=== PATIENT | female | born 1980 | race Caucasian/White ===

== ENCOUNTER 2021-09-25 02:07 | Emergency (ER) | payer OTHER, SELFPAY ==
[2021-09-25 02:08] VITALS: BP 148/87; PULSE 84; RESP 20; TEMP 36.6; O2SAT 98; BMI 31.9
[2021-09-25 02:26] LABS: Microscopic, Urine URINE MICROSCOPIC (MICROSCOPIC)
[2021-09-25 02:27] LABS: Appearance,Urine CLEAR (Clear); Bilirubin,Urine Negative (Negative); Blood, Urine 2+ (Negative); Color,Urine YELLOW (Yellow); Glucose,Urine (UA) Negative (Negative); Ketones,Urine 1+ (Negative); Leukocyte Esterase,Urine Negative (Negative); Nitrate,Urine Negative (Negative); PH,Urine 7.5 (5.0-8.5); Protein,Urine Negative (Negative); Urobilinogen,Urine 0.2 EU/dl (0.2)
--- NOTE | 2021-09-25 02:27 | CT_ITS ---
PROCEDURE INFORMATION: Exam: CT Abdomen And Pelvis With Contrast Exam date and time: 09/25/2021 3:02 AM Age: 40 years old Clinical indication: Abdominal pain; Localized; Lower; Additional info: Belly pain TECHNIQUE: Imaging protocol: Computed tomography of the abdomen and pelvis with contrast. Radiation optimization: All CT scans at this facility use at least one of these dose optimization techniques: automated exposure control; mA and/or kV adjustment per patient size (includes targeted exams where dose is matched to clinical indication); or iterative reconstruction. Contrast material: ISOVUE; Contrast volume: 75 ml; Contrast route: IV; COMPARISON: No relevant prior studies available. FINDINGS: Lungs: No mass/infiltrate at either lung base. No pleural effusion. Liver: The liver is normal in size. Ill-defined area of decreased attenuation noted within the lateral aspect of the medial segment of the left hepatic lobe, adjacent to the falciform ligament. This is felt to represent focal fatty metamorphosis. No intrahepatic biliary dilitation. Gallbladder and bile ducts: Normal. No calcified stones. No ductal dilation. Gallbladder wall thickness is normal. Pancreas: Normal. No ductal dilation. Spleen: No splenomegaly. Granulomatous calcifications are noted. Adrenal glands: Normal. No mass. Kidneys and ureters: Normal. No hydronephrosis. Stomach and bowel: Unremarkable. No obstruction. No mucosal thickening. Small bowel mesentery is normal. Appendix: The appendix is poorly visualized on this examination. There is no evidence of acute inflammatory process within the right lower quadrant. Intraperitoneal space: Trace ascites within the cul-de-sac. No evidence of free air. Vasculature: Mild arterial atheromatous calcifications are noted. No abdominal aortic aneurysm. There are calcified phleboliths within the pelvis. Lymph nodes: Unremarkable. No enlarged lymph nodes. Urinary bladder: Unremarkable as visualized. Reproductive: Unremarkable as visualized. Bones/joints: Unremarkable. No acute fracture. Soft tissues: Unremarkable. IMPRESSION: 1. Trace ascites within the cul-de-sac. No evidence of free air. 2. Ill-defined area of decreased attenuation within the lateral aspect of the medial segment of the left hepatic lobe adjacent to the falciform ligament. This is felt to represent focal fatty metamorphosis. 3. To further evaluate this patient, perhaps correlation with ultrasound of the pelvis with transvaginal and Doppler sonography would be helpful.
[2021-09-25 02:31] LABS: Urine Pregnancy, HCG Qual. Negative (Negative)
[2021-09-25 02:33] LABS: Basophils # 0.2 K/mm3 (0-0.2); Basophils % 0.7 % (0.1-2.0); Eosinophils # 0.3 K/mm3 (0.0-0.4); Eosinophils % 1.1 % (0.1-12.0); Hematocrit 48.5 % (37.0-47.0); Hemoglobin 15.7 g/dL (12.2-16.2); Lymphocytes # 1.4 K/mm3 (0.7-4.5); Mean Corpuscular HGB Conc 32.3 g/dL (31.8-35.4); Mean Corpuscular Hemoglobin 30.7 pg (27.0-31.2); Mean Corpuscular Volume 95.1 fl (81-99); Mean Platelet Volume 7.7 fl (7.4-10.4); Monocytes # 0.7 K/mm3 (0.1-1.0); Monocytes % 2.5 % (1.7-9.3); Neutrophils # 24.9 K/mm3 (1.8-7.8); Neutrophils % 90.6 % (37.0-80.0); Platelet Count 423 K/mm3 (142-424); Red Cell Distribution Width 13.5 % (11.5-17.5); White Blood Count 27.5 K/mm3 (4.8-10.8)
--- NOTE | 2021-09-25 02:35 | HMH.EDNVD ---
ED Disposition Clinical Impression: Pelvic pain Abdominal pain Qualifiers: Abdominal location: generalized Qualified Code(s): R10.84 - Generalized abdominal pain Disposition: Home, Self-Care Condition on Discharge: Good Instructions: DI for Acute Abdominal Pain Additional Instructions: see pcp and vallez filter operator for follow up - pt reports has elevated wbc from her meds per derm Referrals: Trace Borrego MD [Primary Care Provider] - - Critical Care Critical Care Time: No Attestation: On , the high probability of a clinically significant, sudden or life threatening deterioration of the following system(s) required my full and direct attention, intervention and personal management. The time I documented below is in addition to time spent performing reported procedures but includes the following listed in this critical care notation. Medical Decision Making - Medical Records Medical records reviewed: Yes: I reviewed the patient's medical records. - Deniz Inquiry Pt receiving controlled substance: No Vital Signs: 09/25/21 02:08 Temperature 98 F Temperature Source Oral Pulse Rate [Left] 84 Respiratory Rate 20 Blood Pressure [Right Arm] 148/87 H Blood Pressure Mean [Right Arm] 107 02 Sat by Pulse Oximetry 98 Oxygen Delivery Method Room Air - Lab Data Lab results reviewed: Yes: I reviewed the patient's lab results. Lab Results 09/25/21 02:00: Urine HCG, Qual Negative 09/25/21 02:10: Urine Color Yellow, Urine Appearance Clear, Urine pH 7.5, Ur Specific [place] 1.020, Urine Protein Negative, Urine Glucose (UA) Negative, Urine Ketones 1+, Urine Blood 2+, Urine Nitrate Negative, Urine Bilirubin Negative, Urine Urobilinogen 0.2, Ur Leukocyte Esterase Negative, Urine RBC 5-10, Urine WBC Occasional, Ur Squamous Epith Cells 3-5, Amorphous Sediment 1+, Urine Bacteria 1+, Urine Mucus 1+ 09/25/21 02:25: WBC 27.5 H*, RBC 5.10, Hgb 15.7, Hct 48.5 H, MCV 95.1, MCH 30.7, MCHC 32.3, RDW 13.5, Plt Count 423, MPV 7.7, Neut % (Auto) 90.6 H, Lymph % (Auto) 5.0 L, [place] % (Auto) 2.5, Eos % (Auto) 1.1, Baso % (Auto) 0.7, Neut # (Auto) 24.9 H, Lymph # (Auto) 1.4, [place] # (Auto) 0.7, Eos # (Auto) 0.3, Baso # (Auto) 0.2, Total Counted 100, Neutrophils % (Manual) 90 H, Lymphocytes % (Manual) 4 L, Monocytes % (Manual) 5, Basophils % (Manual) 1.0, Platelet Estimate Normal, RBC Morphology Normal 09/25/21 02:25: Sodium 137, Potassium 4.0, Chloride 104, Carbon Dioxide 23, Anion Gap 14.0, BUN 11, Creatinine 0.50 L, Estimated Creat Clear 227, Estimated GFR 137, Est GFR ( Amer) 166, Glucose 165 H, Calcium 9.3, Total Bilirubin 0.3, AST 22, ALT 24, Alkaline Phosphatase 105, Total Protein 7.5, Albumin 4.4, Globulin 3.1, Albumin/Globulin Ratio 1.4, Lipase 90 09/25/21 03:00: Lactate 2.3 H Result diagrams: 09/25/21 02:25 09/25/21 02:25 Orders (Tests/Meds): ED MEDICATIONS Generic Name Dose Route Start Last Admin Trade Name Freq PRN Reason Stop Dose Admin Sodium Chloride 1,000 mls @ 999 mls/hr 09/25/21 07:00 09/25/21 06:55 Sod Chlor 0.9% 1000ml Bag IV 09/25/21 08:00 999 mls/hr .Q1H1M JHOAN Administration Sodium Chloride 8 ml 09/25/21 02:36 Sodium Chloride 0.9% 10ml Vial IV 10/25/21 02:35 NEEDED PRN dilute pepcid Discontinued Medications Generic Name Dose Route Start Last Admin Trade Name Freq PRN Reason Stop Dose Admin Famotidine 20 mg 09/25/21 02:36 09/25/21 02:41 Famotidine 20mg/2ml Vial IV 09/25/21 02:37 20 mg ONCE ONE Administration Sodium Chloride 1,000 mls @ 999 mls/hr 09/25/21 02:45 09/25/21 02:41 Sod Chlor 0.9% 1000ml Bag IV 09/25/21 03:45 999 mls/hr .Q1H1M JHOAN Administration Iopamidol 75 ml 09/25/21 03:15 09/25/21 03:16 Iopamidol-370 (76%);100ml Bottle IV 09/25/21 03:16 75 ml ONCE ONE Administration Ketorolac Tromethamine 30 mg 09/25/21 02:34 09/25/21 02:41 Ketorolac 30mg/Ml Vial IV 09/25/21 02:35 30 mg ONCE ONE Administration Metoclopramide HCl 10 mg
[2021-09-25 02:36] LABS: MANUAL DIFFERENTIAL MANUAL DIFFERENTIAL (MANUAL DIFF)
[2021-09-25 02:40] LABS: Alanine Aminotransferase 24 U/L (12-78); Albumin Level 4.4 g/dl (3.5-5.0); Albumin/Globulin Ratio 1.4 (1.1-1.8); Alkaline Phosphatase 105 U/L (38-126); Aspartate Amino Transferase 22 U/L (14-36); Bilirubin,Total 0.3 mg/dl (0.2-1.3); Blood Urea Nitrogen 11 mg/dl (7-17); Calcium 9.3 mg/dl (8.4-10.2); Carbon Dioxide 23 mmol/L (22.0-30.0); Chloride 104 mmol/L (98-107); Creatinine Clearance Estimated 227 mL/min (50-200); Estimated Glomerular Filt Rate 137 ml/min (>60); GFR (African American) 166 ML/MIN (>60); Globulin 3.1 g/dL (1.3-3.2); Glucose 165 mg/dl (74-100); Lipase 90 U/L (23-300); Sodium 137 mmol/L (136-145); Total Protein,Serum 7.5 g/dl (6.3-8.2)
[2021-09-25 02:56] LABS: Amorphous Sediment,Urine 1+ /lpf; Bacteria,Urine 1+ /lpf; Mucus,Urine 1+ /lpf; WBC,Urine Occasional #/hpf (0-3)
[2021-09-25 03:23] LABS: Lactic Acid 2.3 mmol/L (0.7-2.1)
--- NOTE | 2021-09-25 04:06 | PC.NURSE ---
airframe technical officer notified and asked to check with [facility] on status of readings on imaging
[2021-09-25 05:30] LABS: Lymphocytes % 4 % (10-50); Monocytes % 5 % (2-9); Neutrophils % 90 % (42-76); Platelet Estimate Normal; RBC Morphology Normal; Total Cells Counted 100
--- NOTE | 2021-09-25 06:02 | US_ITS ---
FINAL REPORT CLINICAL HISTORY: RLQ pain FINDINGS: Transabdominal sonographic images of the pelvis were obtained. The uterus is somewhat enlarged and measures 9.4 x 4.8 x 3.9 cm. The endometrium measures 5 mm, which is within normal limits. No uterine mass is identified. The right ovary measures 5.1 cm in length and left ovary measures 4.0 cm in length. Normal blood flow seen to the ovaries. There is a 2.3 cm cyst in the right ovary. There is no evidence of free fluid. IMPRESSION: 2.3 cm right ovarian cyst. Somewhat enlarged uterus. Reviewed, Interpreted and Dictated by Cr Ingram III, MD Transcribed by Nathan Castro Authenticated and [facility]
--- NOTE | 2021-09-25 06:03 | PC.NURSE ---
radiology contacted and requested dairy technician be paged to come in
[2021-09-25 07:11] LABS: Reflex Lactic Add Lactic Reflex
[2021-09-25 07:32] VITALS: BP 131/74; PULSE 78; RESP 16; TEMP 36.6; O2SAT 98
[2021-09-26 12:38] LABS: Peripheral Smear Review Scanned Results
== END 2021-09-25 07:36 | disposition home or self-care (01) ==
PROVIDERS: Emergency Provider Emergency Medicine; PCP Internal Medicine Adolescent Medicine
DX: R10.2 Pelvic and perineal pain (principal); R10.84 Generalized abdominal pain; R11.10 Vomiting, unspecified
CPT/HCPCS: 74177; 76830; 80053; 81001; 81025; 83605; 83690; 85007; 85025; 87040; 96374; 96375; 99284; J2405; Q9967

== ENCOUNTER 2024-09-19 16:03 | Emergency (ER) | payer OTHER, SELFPAY ==
[2024-09-19 16:24] VITALS: BP 142/99; PULSE 88; RESP 18; TEMP 36.8; O2SAT 99; BMI 29.5
--- NOTE | 2024-09-19 16:27 | XR_ITS ---
PROCEDURE INFORMATION: Exam: XR Left Shoulder Exam date and time: 09/19/2024 4:35 PM Age: 43 years old Clinical indication: Injury or trauma; Fall; Blunt trauma (contusions or hematomas); Shoulder; Left; Additional info: Fall / no rom TECHNIQUE: Imaging protocol: Radiologic exam of the left shoulder. Views: 2 or more views. COMPARISON: No relevant prior studies available. FINDINGS: Bones/joints: Acute-appearing, minimally displaced fracture of the lateral and cephalad aspects of the proximal humerus greater tuberosity. No dislocation. Soft tissues: Normal. IMPRESSION: Acute-appearing, minimally displaced fracture of the lateral and cephalad aspects of the proximal humerus greater tuberosity. Recommend further evaluation with CT.
[2024-09-19] MEDS: OXYCODONE 5MG IMMEDIATE RELEASE TABLET 5 MG PO (16:32)
--- NOTE | 2024-09-19 16:33 | ED_ITS ---
<Statement entered by Che Walls DO - 09/19/24 20:17> I was consulted by the ABHILASH, and we discussed the complexity of the problems being addressed. I approved the treatment and management plan for this patient's care in the emergency department, thus performing a substantive portion of the medical decision making. Che Walls DO Discharge Plan Disposition Patient Disposition: Home, Self-Care Referrals Follow up/Referrals: Juancho Meza DO [Staff Physician, Orthopedics] - See instructions Trace Borrego MD [Primary Care Provider, Internal Medicine] - See instructions Activity Restrictions/Add. Instructions Additional Instructions/Restrictions: Today you were evaluated in the emergency department for left shoulder injury. You have a minimally displaced fracture of the lateral and cephalad aspects of the proximal humerus greater tuberosity. Please wear your sling until evaluated by Dr. Meza. Please call the number above to make an appointment this week. You will most likely be scheduled for an MRI. Please take acetaminophen and ibuprofen [id number] for symptomatic relief. Return to the ED for worsening of condition Clinical Impressions Clinical Impression: Injury of shoulder Qualifiers: Encounter type: initial encounter Laterality: left Qualified Code(s): S49.92XA - Unspecified injury of left shoulder and upper arm, initial encounter Instructions Patient Instructions: DI for Shoulder Pain Print Language Print Language: Chadian Discharge ED Provider: Che Walls General Adult HPI General Chief complaint: Extremity Injury, Upper Stated complaint: AO 6-22 fell left side pain,shoulder arm Time Seen by Provider: 09/19/24 16:22 Mode of Arrival: Ambulatory Source of Information: Patient Description of Symptoms (Recalled from ER Triage Doc. by RN): Pt presents for evaluation of left shoulder pain that radiates down her left arm. Pt states she tripped walking up steps. Pt denies LOC/BT. Pt did not hit her head. Pt states that she has a hx of injuring her left arm before. Pt rates pain as a 6/10. Pt has a strong pulse, brisk cap refill, sensation remains intact. Has limited ROM History of Present Illness HPI narrative: patient is a 43-year-old female no significant PMH who presents to the ED after a fall up the stairs, landing on her left shoulder. Patient is unable to range her left arm, complains of pain mostly at the shoulder joint itself. She denies any previous injury to this shoulder. Related Data Allergies Allergy/AdvReac Type Severity Reaction Status Date / Time Penicillins Allergy Verified 09/25/21 02:33 [facility] Disclaimer: The information contained in this section may have been updated after the patient was seen, as this information can be updated by other users. Social History Smoking Status: Current every day smoker alcohol intake: never current occupational status: unemployed Travel in the last 8 weeks?: None Other Medical History Have you received the Flu Vaccine for this season: No Have you received the Pneumonia Vaccine: No ROS Obtained: Yes Systems reviewed as appropriate & no additional complaints except as documented Physical Exam General General appearance: alert and in no apparent distress Head Head exam: atraumatic ENT ENT exam: Present normal exam Neck Neck exam: Present normal inspection and full ROM Chest Chest inspection: Present normal inspection Respiratory Respiratory exam: Present normal lung sounds bilaterally and respiratory distress Cardiovascular Cardiovascular exam: Present regular rate Abdominal Exam Abdominal exam: Present soft External exam: Present normal external exam Extremities Exam Extremities exam: Present tenderness (Left shoulder) and other (Unable to abduct, unable to raise forward, approximately 4 inches range of motion backwards ) Neurological Exam Neurological exam: Present alert and oriented X3 Skin Skin exam: Present warm and intact Medical Decision Making Medical Records Screening: Per USPSTF and CDC recommendations, given the prevalence of disease in our region, it is our hospital?s policy to screen for HIV and viral Hepatitis for a ll patients aged 18 and over and those with ongoing risk factors. Deniz Inquiry Pt receiving controlled substance: No Vital Signs: 09/19/24 16:24 09/19/24 17:01 Temperature 98.3 F Temperature Source Oral Pulse Rate 91 H Pulse Rate [Right] 88 Respiratory Rate 18 18 Blood Pressure 128/89 Blood Pressure [Right Arm] 142/99 H Blood Pressure Mean 102 Blood Pressure Mean [Right Arm] 113 Blood Pressure Source [Right Arm] Automatic Cuff Blood Pressure Position [Right Arm] Sitting 02 Sat by Pulse Oximetry 99 97 Oxygen Delivery Method Room Air Orders (Tests/Meds): ED MEDICATIONS Discontinued Medications Generic Name Dose Route Start Last Admin Trade Name Freq PRN Reason Stop Dose Admin Oxycodone HCl 5 mg 09/19/24 16:28 09/19/24 16:32 Oxycodone 5mg Immediate Release Tablet PO 09/19/24 16:29 5 mg ONCE ONE Administration ORDERS Category Date Time Status Shoulder XR left minimum 2 views [XR shoulder LT min 2V Exams 09/19/24 16:27 Completed ] Stat Medical Decision Narrative: In summary, patient is a 43-year-old female no significant PMH who presents to the ED after a fall up the stairs, landing on her left shoulder. Patient is unable to range her left arm, complains of pain mostly at the shoulder joint itself. She denies any previous injury to this shoulder. Denies additional injury. Did not lose consciousness. Did not hit her head. Upon initial presentation patient is alert, oriented and cooperative. She is stable. Physical exam remarkable for unable to abduct left arm, unable to raise arm forward, unable to move arm back other than approximately 4 inches. She has anterior and shoulder joint tenderness upon physical exam. No rash. No skin tenting noted. Differential diagnosis includes dislocation, malalignment, fracture, rotator cuff tear, among other ligamentous injuries. Imaging of the left shoulder obtained. Final read remarkable for an acute appearing minimally displaced fracture of the lateral cephalad aspects of the proximal humerus and greater tuberosity. Patient placed in sling, advised to call Dr. Meza's office tomorrow to make an appointment for this week, most likely will obtain an MRI for further evaluation of possible rotator cuff tear. Discussed with patient to take acetaminophen and ibuprofen [id number] for symptomatic relief. We discussed return precautions and patient verbalized understanding. Critical Care Critical Care Time Critical Care Time: No
--- OUTSIDE RECORDS SUMMARY | 2024-09-19 16:34 | XMS_ITS | Data Portability ---
Author Organization [facility] ARIELLA Cueva [facility] Address [address] [place] [address] Care Team Providers Care Snapper On Name Role Phone SOPHIA THAKUR [facility] Health Aide Assessment No assessment recorded. Plan of Treatment Reminders Order Date Submit Date Provider Last Modified By Organization Details Last Modified Time Details Appointments PROVIDER APPROVED [facility] 2024 08:20A Karla POWELL MD Not available Not available Not available FOLLOW UP [facility] 2024 08:00A Karla POWELL MD Not available Not available Not available Lab None recorded. Referral None recorded. Procedures None recorded. Surgeries None recorded. Imaging None recorded. Medication Orders None recorded. Patient TargetsNo targets recorded. Patient Instructions Encounter Date Encounter Id Patient Instructions Last Modified By Organization Details Last Modified Time 03/04/2024 [id number] Recommended returning to clinic in 6 months for FBSE [email or web address] Not available 03/04/2024 08:24:41 Reason for Referral None Reported. Medical Equipment None Reported. Allergies Allergen ID Allergen Name Allergen Category Reaction Reaction Severity Criticality Documentation Date Start Date Code Code System Note Provider Name and Address Organization Details Recorded Time [id number] Product containin g penicilli n (product) medicatio n Not available Not available Not available 03/04/2024 [id number] SNOMED Wai Nicholson [facility] 08:16:13 Medications Name Sig Start Date Stop Date Status Note LastModified by Organization Details LastModified Time Stelara 45 mg/0.5 mL subcutaneous syringe Inject 45 mg every 3 months by subcutaneou s route. 2024 active Not Available Not Available Not Avai lable Vitals None Recorded Social History Question Answer Notes LastModified by Organizat ion Details LastModified Time Tobacco Smoking Status [facility] 03/04/2024 08:17:05 What Is Your Level Of Caffeine Consumption? Moderate [email or web address] Information not available 03/04/2024 Sunscreen Use? Yes [email or web address] Informatio n not available 03/04/2024 Tanning Bed Use No Informati on not available 03/04/2024 Are You Or Trying To Become ? No [email or web address] Information not available 03/04/2024 Are You On Control? No [email or web address] Information not available 03/04/2024 Are You ? No [email or web address] Information not available 03/04/2024 What Was The Date Of Your Most Recent Tobacco Screening? 03/04/2024 [email or web address] Information not available 03/04/2024 Has Tobacco Cessation Counseling Been Provided? No Information not available 03/04/2024 Sex: Unknown Functional Status Question Answer Note LastModified by Organizat ion Details LastModified Time Do you use any illicit or recreational drugs? No [email or web address] Information not available 03/04/2024 Do you or have you ever used any other forms of tobacco or nicotine? No [email or web address] Information not available 03/04/2024 What is your level of alcohol consumption? None Information not available 03/04/2024 Mental Status None recorded. Family History Relationship Description Onset Age of this Age Resolved Age Notes LastModified by Organization Details LastModified Time Paternal Aunt Psoriasis [email or web address] Not available 03/04/2024 08:16:37 Medical History Condition Response Skin Cancer N Autoimmune disease Y Gynecological HistoryNo gynecological history recorded. Obstetrics History GPAL:G 0 P 0 0 0 0 Past Encounters Encounter ID Performer Location Encounter Start Date Encounter Closed Date Diagnosis/Indication Diagnosis SNOMED-CT Code Diagnosis ICD10 Code Diagnosis Note [id number] SOPHIA POWELL MD [facility] [address] [facility] [place] [address] 03/04/2024 07:59:33 03/04/2024 09:10:52 Psoriasis vulgaris [id number] L40.0 Z79.899 L40.50 BSA: 12%Pt reports being clear while on Stelara. Arthritic symptoms also improved while on Stelara. She stopped 05/2023 We again discussed the requiremen t for labwork, including CBC and CMP every 6-12 months and QuantiFERO N Gold annually. Pt has previously been given the National Psor[employer] handout on biologics. This handout explains how biologic treatments work, discusses the various treatment options, and discusses the most important side effects, which include but are not limited to, increased infection rate, reactivati on of TB, injection site reactions, and possible increase in skin cancer and lymphoma risk. For Cosentyx and Taltz, there is an increased risk of inflammato ry bowel disease (Crohn's and ulcerative colitis). Pt should not get live vaccines while on a biologic. Pt is aware of these side effects and agrees to continue treatment. Pt will call with any questions or adverse effects. No worrisome side effects were noted. Labs WNL 12/2023 Samples of CeraVe psoriasis cream given Will refill Stelara 45 with loading dose . Need to be seen every 6-12 months while on biologic, or more frequently if issues/fla ring. Health Concerns Section Related Observation LastModified by Organization Detai ls LastModified Time None Recorded Concern Status LastModified by Organization Details LastModified Time None Recorded Advance Directives Directive None Recorded Payers Insurance Date Sequence Insurance Name Policy Number Policy Veronica Covered Member ID Veronica Member ID Guarantor Name 08/30/2024 1 [facility] [id number] Jorge Jo [id number] Jorge oJ Notes Date Note Type Note Provider Name and Address Organization Details Recorded Time 03/04/2024 text/html Patient is here for psoriasis - location: hands- treatments tried in past: clobetasol- currently using: stelara- hot, tender joints, stiffness in joints lasting longer than an hour, or pain in the Achilles tendon? yes- reports: Patient is flaring since she hasn't had her shot SOPHIA POWELL MD [address] [place], [address], [facility] 03/04/2024 09:07:45 OBGyn Episode No OBEpisode recorded.
[2024-09-19 17:01] VITALS: BP 128/89; PULSE 91; RESP 18; O2SAT 97
--- NOTE | 2024-09-19 18:00 | PC.NURSE ---
Provider at bedside discussing results with patient
[2024-09-19 18:09] VITALS: BP 135/91; PULSE 81; RESP 18; TEMP 36.7; O2SAT 97
--- NOTE | 2024-09-19 18:09 | PC.NURSE ---
placed sling on pt
== END 2024-09-19 18:09 | disposition home or self-care (01) ==
PROVIDERS: Emergency Provider Emergency Medicine; PCP Internal Medicine Adolescent Medicine
DX: S49.92XA Unspecified injury of left shoulder and upper arm, initial encounter (principal); W10.8XXA Fall (on) (from) other stairs and steps, initial encounter
CPT/HCPCS: 73030; 99283

== ENCOUNTER 2024-10-07 16:49 | Outpatient (CLI) | payer OTHER, SELFPAY ==
--- OUTSIDE RECORDS SUMMARY | 2024-10-07 16:51 | XMS_ITS | Data Portability ---
Author Organization [facility] ARIELLA [facility] [place] [facility] Address [address] [place] [address] Care Team Providers Care Engineer Third Assistant Name Role Phone SOPHIA THAKUR Project Design Engineer Assessment No assessment recorded. Plan of Treatment Reminders Order Date Submit Date Provider Last Modified By Organization Details Last Modified Time Details Appointments [facility] ED 2024 08:20A M SOPHIA POWELL MD Not available Not available Not available [facility] ED 2025 08:00A M SOPHIA POWELL MD Not available Not available Not available Lab CMP, serum or plasma 2024 025 [email or web address] [facility], [address] [place] [address], [phone], 10/07/2024 12:25:44 CBC w/ auto diff 2024 025 [facility], [address] [place] [address], [phone], 10/07/2024 12:25:44 Mycobacte rium tuberculo sis stimulate d gamma interfero n, qual, blood 2024 025 [email or web address] [facility], [address] [place] [address], [phone], 10/07/2024 12:25:44 Referral None recorded. Procedures None recorded. Surgeries None recorded. Imaging None recorded. Medication Orders None recorded. Patient TargetsNo targets recorded. Patient Instructions Encounter Date Encounter Id Patient Instructions Last Modified By Organization Details Last Modified Time 03/04/2024 [id number] Recommended returning to clinic in 6 months for FBSE [email or web address] Not available 03/04/2024 08:24:41 10/07/2024 [id number] Recommended returning to clinic in 6 months for FBSE [email or web address] Not available 10/07/2024 08:28:54 Reason for Referral None Reported. Medical Equipment None Reported. Allergies Allergen ID Allergen Name Allergen Category Reaction Reaction Severity Criticality Documentation Date Start Date Code Code System Note Provider Name and Address Organization Details Recorded Time 053218 Product containin g penicilli n (product) medicatio n Not available Not available Not available 03/04/2024 59592 8001 SNOMED [facility] 08:16:13 Medications Name Sig Start Date Stop Date Status Note LastModified by Organization Details LastModified Time Stelara 45 mg/0.5 mL subcutaneous syringe Inject 45 mg every 3 months by subcutaneou s route. 2024 active Not Available Not Available Not Avai lable Vitals None Recorded Social History Question Answer Notes LastModified by Organizat ion Details LastModified Time Tobacco Smoking Status Former Smoker [facility] 03/04/2024 08:17:05 What Is Your Level Of Caffeine Consumption? Moderate [email or web address] Information not available 03/04/2024 Sunscreen Use? No [email or web address] Informatio n not available 10/07/2024 Tanning Bed Use No [email or web address] Informati on not available 03/04/2024 Are You Or Trying To Become ? No [email or web address] Information not available 03/04/2024 Are You On Control? No [email or web address] Information not available 03/04/2024 Are You ? No Information not available 03/04/2024 What Was The Date Of Your Most Recent Tobacco Screening? 03/04/2024 [email or web address] Information not available 03/04/2024 Has Tobacco Cessation Counseling Been Provided? No [email or web address] Information not available 03/04/2024 Sex: Unknown Functional Status Question Answer Note LastModified by Organizat ion Details LastModified Time Do you use any illicit or recreational drugs? No [email or web address] Information not available 03/04/2024 Do you or have you ever used any other forms of tobacco or nicotine? No [email or web address] Information not available 03/04/2024 What is your level of alcohol consumption? None [email or web address] Information not available 03/04/2024 Mental Status None recorded. Family History Relationship Description Onset Age of this Age Resolved Age Notes LastModified by Organization Details LastModified Time Paternal Aunt Psoriasis [email or web address] Not available 03/04/2024 08:16:37 Medical History Condition Response Skin Cancer N Autoimmune disease Y Gynecological HistoryNo gynecological history recorded. Obstetrics History GPAL:G 0 P 0 0 0 0 Past Encounters Encounter ID Performer Location Encounter Start Date Encounter Closed Date Diagnosis/Indication Diagnosis SNOMED-CT Code Diagnosis ICD10 Code Diagnosis Note [id number] MD HERNANDEZ [facility] [address] [place], [place] [address] [address] 03/04/2024 07:59:33 03/04/2024 09:10:52 Psoriasis vulgaris 079957943 L40.0 Z79.899 L40.50 BSA: 12%Pt reports being [...] biologic, or more frequently if issues/fla ring. [id number] MD HERNANDEZ [facility] [address] [place], [place] [address] [place] [id number] 10/07/2024 08:08:06 10/07/2024 08:31:02 Psoriasis vulgaris 942515991 L40.0 Z79.899 L40.50 BSA: 1.5%Pt missed a dose of Stelara due to insurance issues at 02/2024.Pt reports being clear while on Stelara. Arthritic symptoms also improved while on Stelara. We again discussed the requiremen t for [...] effects. No worrisome side effects were noted. Lab order given today. Samples of CeraVe psoriasis cream given Will refill Stelara 45 with loading dose ,pending labs. Need to be seen every 6-12 months while on biologic, or more frequently if issues/fla ring. Pt will call in 1-2 weeks if they have not heard regarding labs Health Concerns Section Related Observation LastModified by Organization Detai ls LastModified Time None Recorded Concern Status LastModified by Organization Details LastModified Time None Recorded Advance Directives Directive None Recorded Payers Insurance Date Sequence Insurance Name Policy Number Policy Veronica Covered Member ID Veronica Member ID Guarantor Name 10/07/2024 1 [facility] [id number] Jorge Jo [id number] Jorge Jo Notes Date Note Type Note Provider Name and Address Organization Details Recorded Time 03/04/2024 text/html Patient is here for psoriasis - location: hands- treatments tried in past: clobetasol- currently using: stelara- hot, tender joints, stiffness in joints lasting longer than an hour, or pain in the Achilles tendon? yes- reports: Patient is flaring since she hasn't had her shot SOPHIA POWELL MD [facility] [place], [address], [facility] 03/04/2024 09:07:45 10/07/2024 text/html Patient is here for psoriasis - location: hands, elbows, lower right leg- treatments tried in past: clobetasol- currently using: stelara- hot, tender joints, stiffness in joints lasting longer than an hour, or pain in the Achilles tendon? yes- reports: doing well, stelera going good. no flares since last appoitment SOPHIA POWELL MD [facility] [place], [address], [facility] 10/07/2024 12:25:23 OBGyn Episode No OBEpisode recorded.
--- OUTSIDE RECORDS SUMMARY | 2024-10-07 16:51 | XMS_ITS | Continuity of Care Document ---
Author Organization [facility] Cl[facility]to [facility] Address [address] [place] [address] Care Team Providers Care Knitting Machine Fixer Name Role Phone SOPHIA THAKUR Plant Facilities Technician Assessment No assessment recorded. Plan of Treatment Reminders Order Date Submit Date Provider Last Modified By Organization Details Last Modified Time Details Appointments DERM EST[facility] ED 2024 08:20A Karla POWELL MD Not available Not available Not available [facility]ER[facility] ED 2025 08:00A Karla POWELL MD Not available Not available Not available Lab CMP, serum or plasma 2024 025 [email or web address] [facility], [address] [place] [address], [phone], 10/07/2024 12:25:44 CBC w/ auto diff 2024 025 [facility], [address] [place] [address], [phone], 10/07/2024 12:25:44 Mycobacte rium tuberculo sis stimulate d gamma interfero n, qual, blood 2024 025 [email or web address] [facility], [address] [place] [address], [phone], 10/07/2024 12:25:44 Referral None recorded. Procedures None recorded. Surgeries None recorded. Imaging None recorded. Medication Orders None recorded. Patient TargetsNo targets recorded. Patient Instructions Encounter Date Encounter Id Patient Instructions Last Modified By Organization Details Last Modified Time 10/07/2024 [id number] Recommended returning to clinic in 6 months for EDA [email or web address] Not available 10/07/2024 08:28:54 Reason for Referral None Reported. Medical Equipment None Reported. Allergies Allergen ID Allergen Name Allergen Category Reaction Reaction Severity Criticality Documentation Date Start Date Code Code System Note Provider Name and Address Organization Details Recorded Time 927959 Product containin g penicilli n (product) medicatio n Not available Not available Not available 03/04/2024 18372 8001 SNOMED [facility] 08:16:13 Medications Name Sig Start Date Stop Date Status Note LastModified by Organization Details LastModified Time Stelara 45 mg/0.5 mL subcutaneous syringe Inject 45 mg every 3 months by subcutaneou s route. 2024 active Not Available Not Available Not Avai lable Vitals None Recorded Social History Question Answer Notes LastModified by Organizat ion Details LastModified Time Tobacco Smoking Status Former Smoker [facility] 03/04/2024 08:17:05 What Is Your Level Of Caffeine Consumption? Moderate [email or web address] Information not available 03/04/2024 Sunscreen Use? No [email or web address] Informatio n not available 10/07/2024 Tanning Bed Use No [email or web address] Informati on not available 03/04/2024 Are You Or Trying To Become ? No [email or web address] Information not available 03/04/2024 Are You On Control? No [email or web address] Information not available 03/04/2024 Are You ? No [email or web address] Information not available 03/04/2024 What Was The Date Of Your Most Recent Tobacco Screening? 03/04/2024 [email or web address] Information not available 03/04/2024 Has Tobacco Cessation Counseling Been Provided? No Information not available 03/04/2024 Sex: Unknown Functional Status Question Answer Note LastModified by Organizat ion Details LastModified Time Do you use any illicit or recreational drugs? No [email or web address] Information not available 03/04/2024 Do you or have you ever used any other forms of tobacco or nicotine? No [email or web address] Information not available 03/04/2024 What is your level of alcohol consumption? None [email or web address] Information not available 03/04/2024 Mental Status None recorded. Family History Relationship Description Onset Age of this Age Resolved Age Notes LastModified by Organization Details LastModified Time Paternal Aunt Psoriasis [email or web address] Not available 03/04/2024 08:16:37 Medical History Condition Response Skin Cancer N Autoimmune disease Y Gynecological HistoryNo gynecological history recorded. Obstetrics History GPAL:G 0 P 0 0 0 0 Past Encounters Encounter ID Performer Location Encounter Start Date Encounter Closed Date Diagnosis/Indication Diagnosis SNOMED-CT Code Diagnosis ICD10 Code Diagnosis Note [id number] SOPHIA POWELL MD [facility] [address] [place] [address] 10/07/2024 08:08:06 10/07/2024 08:31:02 Psoriasis vulgaris 141553856 L40.0 Z79.899 L40.50 BSA: 1.5%Pt missed a [...] by Organization Details LastModified Time None Recorded Payers Encounter Date Sequence Insurance Name Policy Number Policy Veronica Covered Member ID Veronica Member ID Guarantor Name 10/07/2024 1 [facility] [id number] Jorge Vasyl Jo [id number] Jorge Jo Notes Date Note Type Note Provider Name and Address Organization Details Recorded Time 10/07/2024 text/html Patient is here for psoriasis - location: hands, elbows, lower right leg- treatments tried in past: clobetasol- currently using: stelara- hot, tender joints, stiffness in joints lasting longer than an hour, or pain in the Achilles tendon? yes- reports: doing well, stelera going good. no flares since last appoitment SOPHIA POWELL MD [address] [place], [address], [facility] 10/07/2024 12:25:23 OBGyn Episode No OBEpisode recorded.
--- NOTE | 2024-10-07 17:15 | MR_ITS ---
PROCEDURE INFORMATION: Exam: MR Left Upper Extremity Joint Without Contrast; Shoulder Exam date and time: 10/07/2024 5:10 PM Age: 43 years old Clinical indication: Pain; Shoulder; Left; Fall September 20 , lrom. Known fracture; Additional info: Left shoulder pain TECHNIQUE: Imaging protocol: Magnetic resonance imaging of the left upper extremity without contrast. Exam focused on the shoulder. COMPARISON: CR XR SHOULDER LT MIN 2V 09/19/2024 4:35 PM FINDINGS: Bones/joints: Marrow edema is visualized involving the lateral aspect of the humeral head and greater tuberosity. Fracture is visualized at the base of the greater tuberosity, with mild cortical step-off superiorly. Minimal fluid signal intensity is seen adjacent to the proximal humeral shaft. Minimal glenohumeral joint fluid is visualized, without significant effusion. No dislocation of the shoulder. Minimal acromioclavicular arthropathy seen. A small amount of fluid is seen within the subscapularis recess. Glenoid labrum: Blunting of the posterior aspect of the labrum is visualized. There is heterogeneous signal intensity on PD of the inferior aspect of the labrum, and labral tear cannot be excluded. Bursae: Fluid is seen within the subdeltoid/subacromial bursa. There is increased complexity of this fluid with internal septation. A hemorrhagic component cannot be excluded. Supraspinatus tendon: Tendinosis is visualized of the supraspinatus tendon, without a visualized tear. Infraspinatus tendon: Mild tendinosis of the infraspinatus tendon. There is a small linear focus of increased PD signal intensity within the distal end for same this tendon, suggestive of partial tear. Subscapularis tendon: No evidence of tear. Teres minor tendon: No evidence of tear. Tendon of biceps brachii: There is heterogeneous signal intensity of the proximal long of the biceps tendon, consistent with tendinosis. No full-thickness tear is visualized. Glenohumeral ligaments: No visualized tear of the inferior glenohumeral ligament. Soft tissues: There is mild edema within the deltoid muscle anteriorly, likely representing muscle strain or contusion. Lymph nodes: Nonspecific axillary lymph nodes are visualized. An enlarged axillary lymph node measures 1.9 x 1.0 cm. IMPRESSION: 1. Marrow edema is visualized involving the lateral aspect of the humeral head and greater tuberosity. Fracture is visualized at the base of the greater tuberosity, with mild cortical step-off superiorly. 2. Complex fluid is seen within the subdeltoid/subacromial bursa. A hemorrhagic component cannot be excluded. Minimal fluid signal intensity is seen adjacent to the proximal humeral shaft. 3. There is mild edema within the deltoid muscle anteriorly, likely representing muscle strain or contusion. 4. Mild tendinosis of the infraspinatus tendon, with suggested partial tear. Tendinosis is also visualized of the supraspinatus and long head of the biceps tendons. 5. Minimal acromioclavicular arthropathy. 6. Additional findings described above.
== END 2024-10-07 23:59 | disposition home or self-care (01) ==
LOC: RAD 16:49
PROVIDERS: PCP Internal Medicine Adolescent Medicine; Visit Provider Orthopaedic Surgery
DX: S42.252A Displaced fracture of greater tuberosity of left humerus, initial encounter for closed fracture (principal); M67.814 Other specified disorders of tendon, left shoulder; M12.9 Arthropathy, unspecified; M25.412 Effusion, left shoulder; R93.6 Abnormal findings on diagnostic imaging of limbs
CPT/HCPCS: 73221